=== PATIENT | female | born 1995 | race Caucasian/White ===

== ENCOUNTER → 2019-05-07 11:42 | Outpatient (BNVA) | payer OTHER, SELFPAY | PROVIDERS: Family Provider Nurse Practitioner; PCP Nurse Practitioner; Visit Provider Nurse Practitioner Family | DX: E03.9 Hypothyroidism, unspecified (principal) | CPT/HCPCS: 84443 ==

== ENCOUNTER → 2019-07-25 11:09 | Outpatient (BNVA) | payer OTHER, SELFPAY | PROVIDERS: Family Provider Nurse Practitioner; PCP Nurse Practitioner; Visit Provider Nurse Practitioner Family | DX: E66.9 Obesity, unspecified (principal); E03.9 Hypothyroidism, unspecified; E55.9 Vitamin D deficiency, unspecified; Z79.899 Other long term (current) drug therapy | CPT/HCPCS: 80053; 80061; 81001; 82306; 83036; 84443; 85025 ==

== ENCOUNTER → 2019-09-26 16:56 | Outpatient (BNVA) | payer OTHER, SELFPAY | PROVIDERS: Family Provider Nurse Practitioner; PCP Nurse Practitioner; Visit Provider Nurse Practitioner Family | DX: E03.9 Hypothyroidism, unspecified (principal); E55.9 Vitamin D deficiency, unspecified; E66.9 Obesity, unspecified | CPT/HCPCS: 84443 ==

== ENCOUNTER → 2019-12-26 09:10 | Outpatient (BNVA) | payer OTHER, SELFPAY | PROVIDERS: Family Provider Nurse Practitioner; PCP Nurse Practitioner; Visit Provider Nurse Practitioner Family | DX: S82.892A Other fracture of left lower leg, initial encounter for closed fracture (principal); X58.XXXA Exposure to other specified factors, initial encounter | CPT/HCPCS: 73610 ==

== ENCOUNTER 2019-12-30 15:46 | Outpatient (CLI) | payer OTHER, SELFPAY | END 2019-12-30 15:47 | disposition home or self-care (01) | LOC: SPT 15:46 | PROVIDERS: Family Provider Nurse Practitioner; PCP Nurse Practitioner; Visit Provider Podiatrist Foot & Ankle Surgery | DX: Z47.89 Encounter for other orthopedic aftercare (principal); S93.409D Sprain of unspecified ligament of unspecified ankle, subsequent encounter; X58.XXXD Exposure to other specified factors, subsequent encounter | CPT/HCPCS: 97760; L1902 ==

== ENCOUNTER → 2020-01-02 15:37 | Outpatient (BNVA) | payer OTHER, SELFPAY | PROVIDERS: Family Provider Nurse Practitioner; PCP Nurse Practitioner; Visit Provider Nurse Practitioner Women's Health | DX: Z01.419 Encounter for gynecological examination (general) (routine) without abnormal findings (principal); R30.0 Dysuria; R31.9 Hematuria, unspecified; R31.29 Other microscopic hematuria; B37.9 Candidiasis, unspecified; N89.8 Other specified noninflammatory disorders of vagina; B37.3 Candidiasis of vulva and vagina; Z11.3 Encounter for screening for infections with a predominantly sexual mode of transmission | CPT/HCPCS: 80053; 81000; 87077; 87086; 87184; 87491; 87591; 87661; 88175 ==

== ENCOUNTER → 2020-05-14 00:01 | Outpatient (BNVA) | payer OTHER, MEDICAID, SELFPAY | PROVIDERS: Family Provider Nurse Practitioner; PCP Nurse Practitioner Family; Visit Provider Nurse Practitioner Family | DX: E03.9 Hypothyroidism, unspecified (principal); R51.9 Headache, unspecified; G89.29 Other chronic pain; R41.3 Other amnesia; Z79.899 Other long term (current) drug therapy; E55.9 Vitamin D deficiency, unspecified; Z13.6 Encounter for screening for cardiovascular disorders; H53.9 Unspecified visual disturbance; Q75.9 Congenital malformation of skull and face bones, unspecified | CPT/HCPCS: 80053; 80061; 81003; 82306; 82607; 83036; 84439; 84443; 84481; 85025 ==

== ENCOUNTER → 2020-06-19 15:33 | Outpatient (BNVA) | payer OTHER, MEDICAID, SELFPAY | PROVIDERS: Family Provider Nurse Practitioner; PCP Nurse Practitioner Family; Visit Provider Obstetrics & Gynecology | DX: Z32.01 Encounter for pregnancy test, result positive (principal) | CPT/HCPCS: 81025 ==

== ENCOUNTER → 2020-10-30 00:01 | Outpatient (BNVA) | payer OTHER, MEDICAID, SELFPAY | PROVIDERS: Family Provider Nurse Practitioner; PCP Nurse Practitioner Family; Visit Provider Nurse Practitioner Family | DX: E03.9 Hypothyroidism, unspecified (principal); G89.29 Other chronic pain; E55.9 Vitamin D deficiency, unspecified; R51.9 Headache, unspecified; Z79.899 Other long term (current) drug therapy | CPT/HCPCS: 80053; 81003; 82306; 83036; 84439; 84443; 85025 ==

== ENCOUNTER → 2021-06-23 16:09 | Outpatient (BNVA) | payer OTHER, MEDICAID, SELFPAY | PROVIDERS: Family Provider Nurse Practitioner; PCP Nurse Practitioner Family; Visit Provider Nurse Practitioner | DX: E03.9 Hypothyroidism, unspecified (principal) | CPT/HCPCS: 84439; 84443; 85025 ==

== ENCOUNTER → 2022-01-04 15:16 | Outpatient (BNVA) | payer OTHER, MEDICAID, SELFPAY | PROVIDERS: Family Provider Nurse Practitioner; Visit Provider Nurse Practitioner | DX: E03.9 Hypothyroidism, unspecified (principal) | CPT/HCPCS: 84443 ==

== ENCOUNTER → 2022-03-14 16:02 | Outpatient (BNVA) | payer OTHER, MEDICAID, SELFPAY | PROVIDERS: Family Provider Nurse Practitioner; PCP Nurse Practitioner; Visit Provider Nurse Practitioner | DX: E03.9 Hypothyroidism, unspecified (principal) | CPT/HCPCS: 84443 ==

== ENCOUNTER 2023-03-06 03:55 | Outpatient (CLI) | payer MEDICAID, SELFPAY ==
[2023-03-06] VITALS (11 sets, daily range): BP systolic 94–122; BP diastolic 55–75; PULSE 67–81; RESP 16; TEMP 35.8–36.6; BMI 40.5
[2023-03-06 04:32] LABS: Urine Color Colorless (Yellow)
[2023-03-06 04:33] LABS: Bilirubin Urine Neg (Negative); Blood Urine Neg (Negative); Glucose Urine UA Norm (Normal); Ketones Urine Negative (Negative); Leukocyte Esterase Urine 2+ (Negative); Nitrate Urine Negative (Negative); Protein Urine Trace (Negative); Urine Appearance SL Hazy (CLEAR); Urobilinogen Urine Norm (Negative); pH Urine 6 (5-7)
[2023-03-06 04:34] LABS: Add Urine Culture? Yes; Bacteria Urine 2+ /hpf; Mucus Urine 1+ /hpf; RBC Urine 0-4 /hpf (0-2); WBC Urine 25-40 /hpf (0-5)
[2023-03-06] MEDS: lactated ringers 1,000 ML 125 ML IV (05:27)
[2023-03-06] MEDS: ceFAZolin 1,000 MG in sodium chloride 0.9% (plus) 50 ML 100 MG IV (05:27)
--- NOTE | 2023-03-06 07:06 | PM.OBTRLD ---
OB L&D Triage Visit Information: Date of evaluation: 03/06/23 Comments/Additional reason(s) for visit: 27-year-old female G2, P1 at 36.1 weeks gestation with LEIGHTON 03/31/2023 observed on labor and delivery triage with complaints of abdominal and back pain onset 03/04/2023. Patient denied fever, nausea vomiting or vaginal bleeding. EFM?category 1 with no contractions. Pelvic exam?cervix 1 cm/thick/-4 vertex presentation. After lab review, urinary tract infection was reviewed patient treated with IV Ancef 1 g and ampicillin 500 mg 3 times daily x 7 days will be called into her pharmacy. Evaluation: Baseline heart rate: 130 Variability: Moderate (11-25) monitor accelerations: Present 15x15 station: -4 Laboratory results: Laboratory Tests 03/06/23 04:15 Urine Color Colorless Urine Appearance Sl hazy A Urine pH 6 Ur Specific Gravit y 1.020 Urine Protein Trace Urine Glucose (UA) Norm Urine Ketones Negative Urine Blood Neg Urine Nitrate Negative Urine Bilirubin Neg Urine Urobilinogen Norm Ur Leukocyte [place]iyah ase 2+ H Urine RBC 0-4 H Urine WBC 25-40 H Ur Squamous Epith Cells 5-10 H Amorphous Sediment Not Reportable Urine Bacteria 2+ H Urine Mucus 1+ Vital signs: Vital Signs - 24 hr 03/06/23 04:09 03/06/23 04:11 03/06/23 04:19 Temperature 96.4 F L Pulse Rate 81 Respiratory Rate 16 Blood Pressure 122/75 Oxygen Delivery Me thod Room Air 03/06/23 04:19 03/06/23 04:26 03/06/23 04:41 Temperature Pulse Rate 72 75 Respiratory Rate 16 Blood Pressure 104/64 94/59 Oxygen Delivery Me thod Room Air 03/06/23 04:59 03/06/23 05:11 03/06/23 05:26 Temperature Pulse Rate 71 75 77 Respiratory Rate Blood Pressure 121/59 114/59 108/55 Oxygen Delivery Me thod 03/06/23 05:41 03/06/23 05:48 03/06/23 05:59 Temperature Pulse Rate 74 73 Respiratory Rate Blood Pressure 111/57 115/67 Oxygen Delivery Ma thod Room Air 03/06/23 06:11 03/06/23 06:18 Temperature 97.8 F Pulse Rate 67 67 Respiratory Rate 16 Blood Pressure 104/55 104/55 Oxygen Delivery Me thod Final Diagnosis Final Diagnosis (1) 36 weeks gestation of : Status: Acute Code(s): Z3A.36 - 36 weeks gestation of (2) UTI (urinary tract infection) in in third trimester: Status: Acute Code(s): O23.43 - Unspecified infection of urinary tract in , third trimester (3) GBS (group B Streptococcus carrier), +RV culture, currently : Status: Acute Code(s): O99.820 - Streptococcus B carrier state complicating (4) Hypothyroidism: Status: Acute Qualifiers: Hypothyroidism type: acquired Qualified Code(s): E03.9 - Hypothyroidism, unspecified Code(s): E03.9 - Hypothyroidism, unspecified Other Information/Follow up Discharge patient after IV Ancef has infused, 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 Patient to keep visit as scheduled. Coding Level of Care Code Acute Code for Chg Fwd Diagnoses 36 weeks gestation of Z3A.36 UTI (urinary tract infection) in in third trimester O23.43 GBS (group B Streptococcus carrier), +RV culture, currently O99.820 Acquired hypothyroidism E03.9 Hypothyroidism type: acquired
[2023-03-06 13:03] LABS: Nitrazine Paper, PH Negative
== END 2023-03-06 06:18 | disposition home or self-care (01) ==
LOC: OPOB 03:58 → OBGYN 03:59
PROVIDERS: Family Provider Nurse Practitioner; PCP Nurse Practitioner; Visit Provider Obstetrics & Gynecology
DX: O99.820 Streptococcus B carrier state complicating pregnancy (principal); O23.43 Unspecified infection of urinary tract in pregnancy, third trimester; Z3A.36 36 weeks gestation of pregnancy; E03.9 Hypothyroidism, unspecified
CPT/HCPCS: 59025; 81001; 83986; 87086; 99211; J0690; J7120

== ENCOUNTER → 2024-07-02 13:41 | Outpatient (BNVA) | payer MEDICAID, SELFPAY | PROVIDERS: Family Provider Nurse Practitioner; PCP Nurse Practitioner Family; Visit Provider Nurse Practitioner Family | DX: E03.9 Hypothyroidism, unspecified (principal); E55.9 Vitamin D deficiency, unspecified; Z79.899 Other long term (current) drug therapy; E66.9 Obesity, unspecified; N32.9 Bladder disorder, unspecified; R32 Unspecified urinary incontinence; O90.89 Other complications of the puerperium, not elsewhere classified; N89.9 Noninflammatory disorder of vagina, unspecified | CPT/HCPCS: 80053; 80061; 81003; 82306; 83036; 84439; 84443; 85025; 86376 ==

== ENCOUNTER → 2024-09-10 09:39 | Outpatient (BNVA) | payer MEDICAID, SELFPAY | PROVIDERS: PCP Nurse Practitioner Family; Visit Provider Nurse Practitioner Family | DX: E55.9 Vitamin D deficiency, unspecified (principal); E03.9 Hypothyroidism, unspecified; E66.811 Obesity, class 1 | CPT/HCPCS: 84443 ==